=== PATIENT | female | born 1995 | race Caucasian/White ===

== ENCOUNTER → 2017-01-16 | Outpatient (CLI) | payer OTHER ==
[~2017-01-16] MED LIST: FOLIC ACID1 MG PO; LAMICTAL100 MG PO; PRENATAL 1+1)(P1 TAB PO
== END | disposition disaster alternative care site (69) ==
LOC: GRAD 07:22
DX: R56.9 Unspecified convulsions (principal); G93.5 Compression of brain
CPT/HCPCS: A9576